=== PATIENT | male | born 1935 | race Caucasian/White ===

== ENCOUNTER 2019-05-11 07:37 | Outpatient (CLI) | payer MEDICARE | END 2019-05-11 23:59 | disposition home or self-care (01) | LOC: CFH 07:37 | PROVIDERS: ATTEND Internal Medicine Cardiovascular Disease | DX: R94.31 Abnormal electrocardiogram [ECG] [EKG] (principal); I10 Essential (primary) hypertension | CPT/HCPCS: 78452; 93017; A9502 ==